=== PATIENT | male | born 1960 | race Caucasian/White ===

== ENCOUNTER 2017-08-09 14:39 | Observation (INO) | payer OTHER ==
--- NOTE | 2017-08-09 14:57 | CPEKG ---
Heart Rate: 60 RR Interval: 1000 P-R Interval: 136 QRSD Interval: 98 QT Interval: 420 QTC Interval: 420 P Orosi: 13 QRS Orosi: 64 T Wave Orosi: 21 EKG Severity - BORDERLINE ECG - EKG Impression: SINUS RHYTHM EKG Impression: Inferior T wave flattening. Electronically Signed By: Frederic Leger 11-Aug-2017 10:51:52
[2017-08-09] MEDS ORDERED: NS 1,000 ML IV ONE ×2 (15:11→15:57)
[2017-08-09] MEDS ORDERED: ONDANSETRON 4 MG/2 ML VIAL IVP ONE (15:11)
[2017-08-09 15:16] LABS: % IMMATURE GRANULYOCYTES 0.5 % (0.0-1.1); ABSOLUTE IMMATURE GRANULOCYTES 0.09 10^3/uL (0.00-0.10); ADD DIFF? NO; ADD MORPH? NO; ADD SCAN? NO; ATYPICAL LYMPHOCYTE FLAG 0 (0-99); FRAGMENT RBC FLAG 0 (0-99); HEMATOCRIT 43.9 % (40.0-51.0); HEMOGLOBIN 15.3 g/dL (13.7-17.5); LEFT SHIFT FLG 0 (0-99); LIPEMIA HEMOLYSIS FLAG 90 (0-99); MEAN CELL HEMOGLOBIN 29.5 pg (27.9-34.1); MEAN CELL HEMOGLOBIN CONCENTR. 34.9 g/dL (32.4-36.7); MEAN CELL VOLUME 84.6 fL (81.5-99.8); MEAN PLATELET VOLUME 9.3 fL (8.7-11.7); PLATELET CLUMPS FLAG 0 (0-99); PLATELET COUNT 348 10^3/uL (150-400); RED BLOOD CELL COUNT 5.19 10^6/uL (4.40-6.38); RED CELL DISTRIBUTION WIDTH 13.1 % (11.5-15.2)
[2017-08-09 15:29] LABS: ALANINE AMINOTRANSFERASE 32 IU/L (21-72); ALBUMIN 5.2 g/dL (3.5-5.0); ALKALINE PHOSPHATASE 97 IU/L (38-126); ANION GAP 18 mEq/L (8-16); ASPARTATE AMINOTRANSFERASE 17 IU/L (17-59); BILIRUBIN,TOTAL 0.9 mg/dL (0.1-1.4); CALCIUM 10.5 mg/dL (8.5-10.4); CARBON DIOXIDE 21 mEq/l (22-31); CHLORIDE 100 mEq/L (97-110); GLOMERULAR FILTRATION RATE > 60; GLUCOSE 106 mg/dL (70-100); POTASSIUM 4.2 mEq/L (3.5-5.2); SODIUM 139 mEq/L (134-144); TOTAL PROTEIN 7.8 g/dL (6.3-8.2)
--- NOTE | 2017-08-09 16:10 | EDPHY ---
H & P Time Seen by Provider: 08/09/17 15:01 HPI/ROS: 56-year-old male presents complaining of abdominal pain that was initially epigastric and has migrated to the right lower quadrant over the last 2 and half days. He went to work this morning however went home from work at 10:00 a.m. and has had several episodes of vomiting, no diarrhea no fevers no chills. No prior surgeries, no prior hospitalizations. Review of systems As per HPI General no fever no chills no weakness HEENT no eye pain no eye discharge. No eye redness, no sore throat Respiratory no cough, no shortness of breath Cardiac no chest pain, no peripheral edema GI positive abdominal pain no diarrhea, no constipation, positive nausea, no vomiting no flank pain, no hematuria, no dysuria Musculoskeletal no myalgias, no joint pain Heme no easy bruising, no easy bleeding Endo no polyuria, no polydipsia Skin no rashes, no pruritus Neuro no syncope, no dizziness, no headaches Psych is no suicidal ideation, no homicidal ideation Past Medical/Surgical History: Noncontributory Social History: No alcohol, no drugs Smoking Status: Never smoked Physical Exam: 56-year-old male alert and oriented in mild distress secondary to abdominal pain , vital signs stable, afebrile HEENT atraumatic normocephalic, extraocular muscles intact, anicteric Oropharynx negative for erythema negative exudate, tolerating her own secretions Neck supple no meningismus Lungs clear to auscultation bilaterally Heart regular rate and rhythm without murmur rub or gallop Abdomen nondistended, bowel sounds quiet, McBurney's point tenderness, positive Rovsing's No pulsatile mass Back no CVA tenderness, no step-offs, no spinal tenderness Extremities no cyanosis clubbing or edema Neuro alert and oriented, no focal deficits Constitutional: Initial Vital Signs Temperature (C) 36.6 C 08/09/17 14:51 Heart Rate 65 08/09/17 14:51 Respiratory Rate 18 08/09/17 14:51 Blood Pressure 152/97 H 08/09/17 14:51 O2 Sat (%) 97 08/09/17 14:51 O2 Delivery Mode Room Air Allergies/Adverse Reactions: No Known Allergies Allergy (Unverified 08/09/17 14:50) Home Medications: Medication Instructions Recorded NK [No Known Home Meds] 08/09/17 Medical Decision Making - Diagnostics Imaging Results: Imaging Impressions Abdomen CT 08/09/17 15:11 Impression: 1. Acute appendicitis with appendiceal thickening up to 12 mm, central edema and periappendiceal inflammatory fluid. 2. No drainable abscesses, pneumoperitoneum or bowel obstruction. Findings and recommendations discussed with Emergency Department physician, Lizbeth Bales MD at 1600 hour, 08/09/2017. Final report concurs with initial preliminary interpretation. ED Course/Re-evaluation: Patient seen and evaluated for abdominal pain Lab sent, IV established Patient given normal saline 1 L wide open, morphine 4 mg IV push, Zofran [address] scan abdomen revealed 12 mm appendix with periappendiceal inflammation and stranding, no abscess No evidence of perforation Impression Acute appendicitis Plan Transfer to [facility] ER Discussed case with Dr. Roblero Notify Dr. Lo Differential Diagnosis: Acute appendicitis, enteritis, cholecystitis, colitis, gastritis - Data Points Laboratory Results: Laboratory Results 08/09/17 15:07 08/09/17 15:07 08/09/17 08/09/17 15:07 15:07 WBC 17.85 10^3/uL H 10^3/uL (3.80-9.50) RBC 5.19 10^6/uL 10^6/uL (4.40-6.38) Hgb 15.3 g/dL g/dL (13.7-17.5) Hct 43.9 % % (40.0-51.0) MCV 84.6 fL fL (81.5-99.8) MCH 29.5 pg pg (27.9-34.1) MCHC 34.9 g/dL g/dL (32.4-36.7) RDW 13.1 % % (11.5-15.2) Plt Count 348 10^3/uL 10^3/uL (150-400) MPV 9.3 fL fL (8.7-11.7) Neut % (Auto) 91.3 % H % (39.3-74.2) Lymph % (Auto) 3.2 % L % (15.0-45.0) Cavalier % (Auto) 4.9 % % (4.5-13.0) Eos % (Auto) 0.0 % L % (0.6-7.6) Baso % (Auto) 0.1 % L % (0.3-1.7) Nucleat RBC Rel Count 0.0 % % (0.0-0.2) Absolute Neuts (auto) 16.29 10^3/uL H 10^3/uL (1.70-6.50) Absolute Lymphs (auto) 0.57 10^3/uL L 10^3/uL (1.00-3.00) Absolute Monos (auto) 0.88 10^3/uL H 10^3/uL (0.30-0.80) Absolute Eos (auto) 0.00 10^3/uL L 10^3/uL (0.03-0.40) Absolute Basos (auto) 0.02 10^3/uL 10^3/uL (0.02-0.10) Absolute Nucleated RBC 0.00 10^3/uL 10^3/uL (0-0.01) Immature Gran % 0.5 % % (0.0-1.1) Immature Gran # 0.09 10^3/uL 10^3/uL (0.00-0.10) Sodium 139 mEq/L mEq/L (134-144) Potassium 4.2 mEq/L mEq/L (3.5-5.2) Chloride 100 mEq/L mEq/L (97-110) Carbon Dioxide 21 mEq/l L mEq/l (22-31) Anion Gap 18 mEq/L H mEq/L (8-16) BUN 11 mg/dL mg/dL (7-23) Creatinine 1.0 mg/dL mg/dL (0.7-1.3) Estimated GFR > 60 Glucose 106 mg/dL H mg/dL (70-100) Calcium 10.5 mg/dL H mg/dL (8.5-10.4) Total Bilirubin 0.9 mg/dL mg/dL (0.1-1.4) AST 17 IU/L IU/L (17-59) ALT 32 IU/L IU/L (21-72) Alkaline Phosphatase 97 IU/L IU/L (38-126) Total Protein 7.8 g/dL g/dL (6.3-8.2) Albumin 5.2 g/dL H g/dL (3.5-5.0) Lipase 56 IU/L IU/L (23-300) Medications Given: Discontinued Medications Sodium Chloride (Ns) 1,000 mls @ 0 mls/hr IV ONCE ONE PRN Reason: Wide Open Stop: 08/09/17 15:12 Last Admin: 08/09/17 15:19 Dose: 1,000 mls Morphine Sulfate (Morphine) 4 mg IVP EDNOW ONE Stop: 08/09/17 15:12 Last Admin: 08/09/17 15:20 Dose: 2 mg Ondansetron HCl (Zofran) 4 mg IVP EDNOW ONE Stop: 08/09/17 15:12 Last Admin: 08/09/17 15:19 Dose: 4 mg Departure - Departure Disposition: [facility] ER Clinical Impression: Acute appendicitis Condition: Good Referrals: Franco Masterson MD [Primary Care Provider] - As per Instructions
[2017-08-09 16:27] LABS: LEUKOCYTE ESTERASE,URINE NEGATIVE (NEGATIVE); NITRITE,URINE NEGATIVE (NEGATIVE)
[2017-08-09 16:29] LABS: COLOR DARK YELLOW
[2017-08-09 16:40] LABS: BACTERIA 2+ /hpf (NONE SEEN); MUCUS 4+ /lpf (NONE-1+); RBC,URINE NONE SEEN /hpf (0-3)
[2017-08-09] MEDS ORDERED: ERTAPENEM 1 GM in NS 100 ML IV ONE (17:40)
--- NOTE | 2017-08-09 19:03 | GHP ---
[f rep st] HISTORY AND PHYSICAL DATE OF ADMISSION: 08/09/2017 ADMITTING DIAGNOSIS: Acute appendicitis. HISTORY: Patient is a 56-year-old white male who was in his usual state of good health until Monday at approximately 2 p.m. (today is Monday). He had lunch about noon and about 2 o'clock he had the onset of a continued low-grade, upper epigastric pain. That pain continued. He was able to sleep through the night and Monday morning moved his bowels and ate on Monday. Last night, in the middle of the night, the pain was worse and woke him up from sleep. He did not have breakfast this morning nor did he have lunch. He drove into work and found he had persistent discomfort. He moved his bowels several times without improvement and he went home. At 2 p.m. he went to [facility]. His history was consistent with appendicitis and a CT revealed that he had a retrocecal appendix. He was given fluids and transferred to [facility]. There is no history of a recent upper respiratory tract infection or diarrhea. He has not had any travel or antibiotic use in the last 6 months. There is no history of inflammatory bowel disease. There is no history of prior abdominal surgery or prior similar symptoms. SOCIAL HISTORY: He does not smoke. He drinks approximately a beer a week. ALLERGIES: He has no known drug allergies. MEDICATIONS: He is not taking medications. PAST SURGICAL HISTORY: He has had no prior surgery. There is no history of rheumatic fever, tuberculosis, hepatitis, or transfusions. REVIEW OF SYSTEMS: He has had a concussion as a young man. He wears lenses for reading. He does have tinnitus. He has acid reflux 2-3 times a week at night. He uses Tums. There are no limits on his activities. No history of steroid use. Review of systems is otherwise quite negative. PHYSICAL EXAMINATION: GENERAL: He is awake, alert and pleasant. He is in no acute distress currently, but he has had narcotics. HEAD: Skull is normocephalic and atraumatic. He is oriented x3. GCS is 15. BACK: Unremarkable. NECK: Supple. Nontender. LUNGS: Clear to auscultation. CARDIAC: Shows S1, S2 to be normal with no split of S2. ABDOMEN: Soft, but has distinctly hypoactive bowel sounds. Psoas and obturator signs are negative. With cough he is tender over McBurney's point. To palpation, left upper quadrant is 1 on a scale of 1-10, left mid abdomen is 1, left lower quadrant is 1, epigastrium is 1, periumbilical area is 1, suprapubic area is 1, right upper quadrant is 1, right mid abdomen is 3, right lower quadrant is 4, over the right iliac crest is 4. He has tenderness with cough, was 2 at McBurney's point. His white blood cell count is 17.8 with 91% neutrophils. He is receiving Invanz for antibiotic therapy. His creatinine is 1.0. His BUN is 11. His glucose is 106. His calcium is 10.5, his albumin is 2.5. His urine shows specific gravity 1.030. He has 3+ ketones. He has 4+ urine mucus and 2+ urine bacteria growing 1-[address] confirms the above suspicions of acute appendicitis in a retrocecal position. We will plan to take him to surgery for a laparoscopic appendectomy. The patient understands the planned procedure and agrees to proceed as outlined. /[id number]/MODL MTDD
[2017-08-09] MEDS ORDERED: HEPARIN 5,000 UNIT/0.5 ML SYR ONE (19:14)
[2017-08-09] MEDS ORDERED: ceFAZolin 1 GM/5 ML SYR ONE (19:16)
[2017-08-09] MEDS ORDERED: MIDAZOLAM 2 MG/2 ML VIAL IVP ONE (19:32)
--- NOTE | 2017-08-09 19:32 | PDANEPAE ---
ANE History of Present Illness Appendectomy ANE Past Medical History - Cardiovascular History Hx Hypertension: No Hx Arrhythmias: No Hx Chest Pain: No Hx Coronary Artery / Peripheral Vascular Disease: No - Pulmonary History Hx COPD: No Hx Asthma/Reactive Airway Disease: No Hx Recent Upper Respiratory Infection: No Hx Sleep Apnea: No ANE Review of Systems Review of Systems: - Exercise capacity METS (RN): 4 METS ANE Patient History - Allergies Allergies/Adverse Reactions: No Known Allergies Allergy (Unverified 08/09/17 14:50) - Home Medications Home Medications: NK [No Known Home Meds] 08/09/17 [Last Taken Unknown] - NPO status NPO Since - Liquids (Date): 08/09/17 NPO Since - Liquids (Time): 14:00 NPO Since - Solids (Date): 08/08/17 NPO Since - Solids (Time): 18:00 - Smoking Hx Smoking Status: Never smoked ANE Labs/Vital Signs - Labs Result Diagrams: 08/09/17 15:07 08/09/17 15:07 - Vital Signs Blood Pressure: 140/75 Heart Rate: 78 Respiratory Rate: 16 O2 Sat (%): 97 Weight: 79.379 kg ANE Physical Exam - Airway Neck exam: short neck Mallampati Score: Class 2 Mouth exam: normal dental/mouth exam - Pulmonary Pulmonary: no respiratory distress, no rales or rhonchi - Cardiovascular Cardiovascular: regular rate and rhythym, no murmur, rub, or gallop - ASA Status ASA Status: I, E ANE Anesthesia Plan Anesthesia Plan: general endotracheal anesthesia Specialized Airway: video laryngoscope
[2017-08-09] MEDS ORDERED: fentaNYL 250 MCG/5 ML INJ ONE (19:38)
[2017-08-09] MEDS ORDERED: PROPOFOL/EMULSION 500 MG/50 ML BOTTLE IV ONE (19:39)
[2017-08-09] MEDS ORDERED: ROCURONIUM 50 MG/5 ML VIAL ONE (19:39)
[2017-08-09] MEDS ORDERED: LIDOCAINE 2% 5 ML SDV ONE (19:39)
[2017-08-09] MEDS ORDERED: NALOXONE HCL 0.4 MG/ML INJ IVP PRN (20:30)
[2017-08-09] MEDS ORDERED: PROMETHAZINE HCL 25 MG/ML INJ IVP PRN (20:30)
[2017-08-09] MEDS ORDERED: HYDROmorphONE/DILAUDID 1 MG/ML INJ IVP PRN ×2 (20:30→21:00)
[2017-08-09] MEDS ORDERED: ONDANSETRON 4 MG/2 ML VIAL IVP PRN ×2 (20:30→21:00)
[2017-08-09] MEDS ORDERED: fentaNYL 100 MCG/2 ML INJ IVP PRN (20:30)
[2017-08-09] MEDS ORDERED: HYDROCODONE/APAP 5/325 TAB PO PRN (20:30)
[2017-08-09] MEDS ORDERED: OXYCODONE/APAP 5/325 TAB PO PRN (20:30)
[2017-08-09] MEDS ORDERED: GLYCOPYRROLATE 0.2 MG/1 ML VIAL ONE (20:32)
[2017-08-09] MEDS ORDERED: ONDANSETRON 4 MG/2 ML VIAL ONE (20:32)
[2017-08-09] MEDS ORDERED: METOCLOPRAMIDE 10 MG/2 ML VIAL ONE (20:32)
[2017-08-09] MEDS ORDERED: SUGAMMADEX SODIUM 200 MG/2 ML VIAL IVP ONE (20:45)
[2017-08-09] MEDS ORDERED: KETOROLAC 30 MG/1 ML SDV ONE (20:47)
[2017-08-09] MEDS ORDERED: LR 1,000 ML IV SCH (21:00)
--- NOTE | 2017-08-09 21:11 | POSTOPPROG ---
Post Op Note Date of Operation: 08/09/17 Surgeon: Erwin Roblero Anesthesia: GET(General Endotracheal) Pre-op Diagnosis: acute appendicitis Post-op Diagnosis: acute non-ruptured appendicitis and meckles diverticulum Indication: acute appendicitis Procedure: laparoscopic appendictomy Findings: acute non-ruptured appendicitis and meckles diverticulum Inf/Abcess present in the surg proc area at time of surgery?: No EBL: Minimal Total fluids administered: 1000 Complications: none
--- NOTE | 2017-08-09 21:30 | POSTANESTH ---
Post Anesthetic Evaluation Cardiovascular Status: Normal, Stable Respiratory Status: Normal, Stable Level of Consciousness/Mental Status: Can Participate in Eval Pain Control: Adequate, Prn Tx Ordered Nausea/Vomiting Control: Adequate, Prn Tx Ordered Complications Possibly Related to Anesthesia: None Noted
--- NOTE | 2017-08-09 22:09 | GOP ---
[f rep st] OPERATIVE REPORT DATE OF OPERATION: 08/09/2017 SURGEON: Erwin Roblero MD PREOPERATIVE DIAGNOSIS: Acute appendicitis. POSTOPERATIVE DIAGNOSIS: Acute nonruptured appendicitis with Meckel diverticulum. PROCEDURE PERFORMED: Laparoscopic appendectomy. FINDINGS: Acute nonruptured appendicitis with Meckel diverticulum (less than 2 cm x 2 cm x 2 cm). ESTIMATED BLOOD LOSS: Scant. INDICATIONS: Acute appendicitis. DESCRIPTION OF PROCEDURE: The patient was placed on the operating table in supine position. After induction of adequate general endotracheal anesthesia, a surgical time-out was carried out. The abdomen was now clipped, prepped and draped. A curvilinear incision was planned at the umbilicus, as well as in the transverse suprapubic area in the left lower quadrant. All 3 incisions were made sharply and dissection was continued deeply with Bovie electrocautery and a spreading technique. The anterior rectus sheath was grasped on either side of the midline with Allis clamps. The midline fascia was elevated and incised. A pursestring of #0 PDS was placed. The peritoneum was entered. An 11-12 mm Cem trocar was positioned. Intra-abdominal insufflation was carried out to 15 mmHg. A 5 mm left lower quadrant port was placed, as was a suprapubic 5 mm port. There was no obvious purulence in the peritoneum. The patient was placed in a 5 degree rotation to the left and a 17 degree head-down position. The appendix was lateral to the cecal wall. Adhesions to the lateral sidewall were taken down with the Harmonic scalpel. The appendix was elevated. The mesoappendix was divided with the Harmonic scalpel down to its base. The base was cleared circumferentially. A single application of a powered EndoGIA stapler was used to transect the appendix with a cuff of cecum. The specimen was placed in EndoCatch bag and delivered via the umbilical port site. Irrigation with heparin and Ancef-containing irrigant was again carried out. The small bowel was run for a distance of approximately 2 feet, where a Meckel diverticulum was encountered. It was approximately 2 cm x 2 cm at its base and less than 2 cm in height. Given his age and the size of the diverticulum, I did not feel that this was going to be something which was going to cause him mischief in future, so I elected not to remove it. Photographic documentation was performed. Ports were now removed under direct vision. The umbilical pursestring was elevated. Allis clamp was used to grab the fascia on either side of the midline. A simple suture #0 PDS was placed. The pursestring was tied and then the simple sutures tied to complete the closure. Irrigation with heparin and Ancef-containing irrigant was carried out to the infraumbilical incision. All skin incision were now closed with inverted simple sutures of #4-0 Vicryl. Mastisol and Steri-Strips were placed. Band-Aids were positioned. The patient was transferred to recovery in stable and satisfactory condition. FLUIDS REPLACED: 1000. COMPLICATIONS: None. DRAINS: None. /[id number]/MODL MTDD
[2017-08-09] MEDS: ACETAMINOPHEN 325 MG TAB PO SCH (23:47)
[2017-08-09] MEDS: KETOROLAC 15 MG/1 ML SDV IVP SCH (23:56)
[2017-08-10 04:49] VITALS: O2SAT 96
[2017-08-10] MEDS: ACETAMINOPHEN 325 MG TAB PO SCH (06:01)
[2017-08-10] MEDS: KETOROLAC 15 MG/1 ML SDV IVP SCH (06:02)
[2017-08-10 07:39] VITALS: BP 115/72; PULSE 71; RESP 20; TEMP 98.9
--- NOTE | 2017-08-10 09:21 | SOAPPROG ---
SOAP Progress Note Assessment/Plan: POD#1 08/10/17 09:18 Assessment: Feels well, eating, + bowel sounds, incisions clean and dry. Shown pictures of appendicitis and Meckel's diverticulum. Doing well Plan: Advance diet and if doing well home today Subjective: no complaints Objective: Vital Signs Temp Pulse Resp BP Pulse Ox 37.2 C 71 20 115/72 96 08/10/17 07:38 08/10/17 07:38 08/10/17 07:38 08/10/17 07:38 08/10/17 07:38 08/09/17 08/10/17 08/11/17 05:59 05:59 05:59 Intake Total 1050 Output Total 3 Balance 1047 Physical Exam - Physical Exam General Appearance: WD/WN, alert, no apparent distress Neck: non-tender, full range of motion, supple Respiratory: chest non-tender, lungs clear, normal breath sounds Cardiac/Chest: regular rate, rhythm Abdomen: normal bowel sounds, non-tender, soft, other (incisions clean and dry) Male Genitalia: deferred Rectal: deferred Back: Normal inspection Skin: normal color, warm/dry Lymphatic: no adenopathy Extremities: normal range of motion Neuro/Psych: no motor/sensory deficits, alert, normal mood/affect, oriented x 3 ICD10 Worksheet Patient Problems: Problems Problem Status Onset Acute appendicitis Acute
--- NOTE | 2017-08-10 11:17 | GDS ---
[f rep st] DISCHARGE SUMMARY DISCHARGE DIAGNOSES: 1. Acute unruptured appendicitis. 2. Meckel diverticulum. PROCEDURE: Laparoscopic appendectomy. CONDITION ON DISCHARGE: Improved. DISCHARGE DISPOSITION: Home. MEDICATIONS AT DISCHARGE: Tylenol 1000 mg every 8 hours and Toradol 10 mg p.o. every 6 hours. He is to substitute Motrin when the Toradol is complete. DISCHARGE INSTRUCTIONS: His diet is unrestricted although I suggest he avoid constipating foods such as bananas, rice, applesauce, and cheese. He will follow up with Dr. Nic Wheeler and his colleagues in 10 days to 2 weeks. He is to shower only, lift less than 10 pounds, and keep his Steri-Strips in place. I suggest he take a multivitamin with zinc, copper, and C. HOSPITAL COURSE: The patient was admitted, taken to the operating room where an uncomplicated acute appendicitis was treated. On exploring his small intestine, a 2 x 2 x 2 cm Meckel's diverticulum was identified. It has been absolutely asymptomatic, and I opted not to remove it at this time. The patient tolerated the procedure well. He is seen on postop day #1. He is eating, has no complaints. He will return as noted above. He has been cautioned for signs of superficial and deep infection. /[id number]/MODL MTDD
--- NOTE | 2017-08-10 14:26 | ASDISCHSUM ---
Discharge Information Plan Status:Home with No Needs Medically Cleared to Leave: Discharge Date:08/10/2017 10:30 AM CM D/C Disposition:Home, Routine, Self-Care ADT D/C Disposition:Home, Routine, Self-Care Projected Discharge Date:08/10/2017 10:30 AM Transportation at D/C: Discharge Delay Reason: Follow-Up Date:08/10/2017 10:30 AM Discharge Slot: Final Diagnosis: Placement Information Patient Contact Information Contact Name:SAIMAMELINA Relationship: Address:[address] Work Phone: [facility] Phone: [facility]/Zip Code:[place] [address] Email: Financial Information Financial Class:HMO and PPO Plans Primary Plan Desc:[facility] Primary Plan Number:[id number] Secondary Plan Desc: Secondary Plan Number: Assessment Information Intervention Information Intervention Type:*Incorrect Registration Date of Service:08/09/2017 09:23 AM Patient Type:Observation Staff Member:AFRICA Holliday Susan Hours: Discipline: Severity: Comment:
== END 2017-08-10 10:30 | disposition home or self-care (01) ==
LOC: CED 14:39 → INTOOBSV 18:28 → F3E 21:57
PROVIDERS: ADMIT Surgery; ATTEND Surgery
PROC: 0DTJ4ZZ Resection of Appendix, Percutaneous Endoscopic Approach (ICD-10-PCS; principal; 2017-08-09 20:00)
DX: K35.80 Unspecified acute appendicitis (principal); Q43.0 Meckel's diverticulum (displaced) (hypertrophic); K21.9 Gastro-esophageal reflux disease without esophagitis; H93.19 Tinnitus, unspecified ear
CPT/HCPCS: 44970; 74177; 93005; G0378; 80053-PO; 81003-PO; 81015-PO; 83690-PO; 85025-PO; 96365; J1335; J1885; J2250; J2405; J2704; J2765; J3010